=== PATIENT | female | born 1990 | race Two or more races ===

== ENCOUNTER 2019-07-11 00:37 | Inpatient (IN) | payer SELFPAY ==
[~2019-07-11] VITALS: Ht 162.6 cm; Wt 107.3 kg
[2019-07-11 01:17] LABS: Urine Bacteria FEW /hpf (None Seen); Urine Blood Negative /uL (Negative); Urine Mucus FEW (None Seen); Urine Specific Gravity 1.032 (1.001-1.035); Urine WBC 5 /hpf (0 - 5)
[2019-07-11 01:55] LABS: Basophils # (auto) 0.1 10 ^3/uL (0-0.2); Basophils % (auto) 0.6 % (0.0-2.0); Eosinophils # (auto) 0 10 ^3/uL (0-0.8); Eosinophils % (auto) 0.3 % (0.0-7.0); Hematocrit 43.1 % (36.0-46.0); Hemoglobin 14.5 g/dL (12.2-16.2); Lymphocytes # (auto) 1.5 10 ^3/uL (0.4-5.4); Lymphocytes % (auto) 15.9 % (10.0-50.0); Mean Corpuscular Hemoglobin 28.7 pg (28.0-32.0); Mean Corpuscular Hgb Conc. 33.5 g/dL (32.0-36.0); Mean Corpuscular Volume 85.7 fL (80.0-100.0); Monocytes # (auto) 0.4 10 ^3/uL (0-1.3); Monocytes % (auto) 3.9 % (0.0-12.0); Neutrophils # (auto) 7.4 10 ^3/uL (1.6-8.6); Neutrophils % (auto) 79.3 % (37.0-80.0); Nucleated Red Blood Cells % 0.1 %; Platelet Count (auto) 359 10^3/uL (140-450); Red Blood Cells 5.03 10^6/uL (4.0-5.20); Red Cell Distribution Width 12.7 % (11.8-14.3); White Blood Cell 9.4 10^3/uL (4.4-10.8)
[2019-07-11 02:14] LABS: Albumin 3.6 g/dL (3.4-5.0); BUN/Creatinine Ratio 16.1; Calcium 9.1 mg/dL (8.5-10.1); Potassium 3.9 mmol/L (3.5-5.1)
[2019-07-11 02:17] LABS: Bilirubin, Total 0.2 mg/dL (0.2-1.0); Total Protein 8.8 g/dL (6.4-8.2)
[2019-07-11] MEDS ORDERED: SODIUM CHLORIDE 0.9% 500 ML IVB ONE (06:34)
[2019-07-11] MEDS ORDERED: ONDANSETRON HCL 4 MG/2 ML VIAL IV ONE ×2 (06:45→09:00)
[2019-07-11] MEDS ORDERED: MORPHINE SULFATE 4 MG/ML SYR/VIAL IV ONE (06:45)
[2019-07-11] MEDS ORDERED: HYDROmorphone HCL 2 MG/ML VL IV ONE (09:00)
[2019-07-11] MEDS: SODIUM CHLORIDE 0.9% 1,000 ML IV SCH ×2 (11:15→12:24)
[2019-07-11] MEDS: MEPERIDINE HCL (25 MG/ML) 1ML VIAL IM PRN ×3 (12:20→22:12)
[2019-07-11] MEDS: ONDANSETRON HCL 4 MG/2 ML VIAL IV PRN ×2 (13:02→17:57)
--- NOTE | 2019-07-11 14:00 | NUR ---
Wound dressing changed to right hip. Signed: 07/12/19 at 1710 by CHIVO MIN RN Addendum: 07/12/19 at 1710 by CHIVO MIN RN wrong patient Signed: 07/12/19 at 1710 by CHIVO MIN RN
[2019-07-11] MEDS ORDERED: cefTRIAXone 1GM/50ML D5W 50 ML IV ONE (16:30)
[2019-07-11 18:57] VITALS: BP 122/70
--- NOTE | 2019-07-11 19:11 | NUR ---
MS admit from ER [facility] PEREZ admitted to tele/MS after SBAR received. Patient oriented to CHIVO MIN, primary RN, unit, room, bed, and unit policies regarding patient care and visiting hours. Patient weighed by bed scale and encouraged to call if they need something. All questions and concerns
--- NOTE | 2019-07-11 19:35 | NUR ---
RECEIVED PATIENT FROM DAY SHIFT RN. PATIENT RESTING IN BED WITH EYES CLOSED. FAMILY AT BEDSIDE. NO S/S OF DISTRESS AND PAIN NOTED. REINFORCED NPO AFTER MIDNIGHT FOR PROCEDURE TOMORROW. POC INSTRUCTED AND ENCOURAGED PATIENT TO CALL FOR [employer] PHOTO MASK TECHNICIAN IF NEEDED. BED IN LOWEST POSITION WITH SIDE RAILS UP X 2. CALL LEIGH WITHIN REACH. CONTINUE TO MONITOR FOR CHANGES Q1H AND PRN.
[2019-07-11 21:30] VITALS: BP 122/70
[2019-07-11] MEDS: PANTOPRAZOLE 40 MG TAB PO SCH (21:30)
[2019-07-11] MEDS ORDERED: FAMOTIDINE (10MG/ML) 2ML VL IV SCH (22:00)
--- NOTE | 2019-07-11 22:14 | NUR ---
MEDICATED PATIENT FOR PAIN @ 10/17 ORDERED. CONTINUE TO MONITOR. Addendum: 07/11/19 at 2252 by Mya Grider RN PAIN SCALE 11/16
[2019-07-12] VITALS (7 sets, daily range): BP systolic 97–112; BP diastolic 58–81
--- NOTE | 2019-07-12 00:11 | NUR ---
WATER REMOVED FROM BEDSIDE. PATIENT SLEEPING. NO S/S OF DISTRESS NOTED. CONTINUE TO MONITOR.
[2019-07-12] MEDS: SODIUM CHLORIDE 0.9% 1,000 ML IV SCH ×3 (01:52→23:49)
[2019-07-12] MEDS: MEPERIDINE HCL (25 MG/ML) 1ML VIAL IM PRN ×3 (02:41→11:07)
[2019-07-12 05:22] LABS: INR 1.14 (0.9-1.15); Partial Thromboplastin Time 29.2 sec (23.64-32.05)
--- NOTE | 2019-07-12 06:00 | NUR ---
PATIENT C/O PAIN CAME BACK @ 11/16. WILL COME BACK FOR PAIN MEDICATION LATER WHEN THE TIME IS DUE. REINFORCED NPO FOR NOW. PATIENT VERBALIZED UNDERSTANDING. CONTINUE TO MONITOR.
--- NOTE | 2019-07-12 06:38 | NUR ---
MEDICATED PATIENT FOR PAIN @ 11/16 ORDERED. CONTINUE TO MONITOR.
[2019-07-12] MEDS ORDERED: cefTRIAXone 1GM/50ML D5W 50 ML IV SCH (09:00)
[2019-07-12] MEDS: PANTOPRAZOLE 40 MG TAB PO SCH ×2 (09:33→22:16)
[2019-07-12] MEDS ORDERED: diphenhdrAMINE HCL 50 MG/1 ML VL ONE (10:22)
[2019-07-12] MEDS ORDERED: SODIUM CHLORIDE LOCK 10 ML ONE (10:22)
[2019-07-12] MEDS ORDERED: LIDOCAINE VISCOUS 2% 15ML UD ONE (10:22)
[2019-07-12] MEDS: ONDANSETRON HCL 4 MG/2 ML VIAL IV PRN ×2 (11:07→22:16)
[2019-07-12] MEDS: fentaNYL CITRATE 100 MCG/2 ML VL ONE ×2 (12:32→12:36)
[2019-07-12] MEDS: MIDAZOLAM HCL 5 MG/ML-1ML VIAL ONE ×2 (12:32→12:36)
--- NOTE | 2019-07-12 13:30 | NUR ---
Patient came back from OR, patient is drowsy and verbally responsive. Respiratory even and unlabored. Skin is warm and dry to touch. VS : T 98.5, HR 112, BP 97/58 o2 93 % on 2 L cannular. Will continue to monitor.
--- NOTE | 2019-07-12 13:36 | NUR ---
Dr. Rosario paged regarding pain meds, awaiting to call back.
--- NOTE | 2019-07-12 14:00 | NUR ---
Received a call from Dr. Rosario, noted and carried it out.
[2019-07-12] MEDS ORDERED: ACETAMINOPHEN 325 MG TAB PO PRN ×2 (14:30→14:45)
[2019-07-12] MEDS: PIPERACILLIN-TAZOB 3.375GM 100 ML IV SCH ×2 (17:47→23:48)
[2019-07-12] MEDS: MEPERIDINE HCL (25 MG/ML) 1ML VIAL IV PRN ×2 (18:59→23:49)
--- NOTE | 2019-07-12 19:10 | NUR ---
Opening Shift Note Assumed care of patient, Patient awake and alert and oriented X4. currently at the bedside. Patient complains of pain 7/10 in the right upper abdominal quadrant with nausea and vomiting. Will medicate for pain and nausea PRN. Bed is in lowest position, locked, 2 side rails raised, with call colón within reach. Instructed on POC and to call for assist PRN, will continue to monitor for changes Q1hr and PRN.
[2019-07-12] MEDS: ACETAMINOPHEN 500 MG TAB PO PRN (22:17)
[2019-07-13] MEDS: PIPERACILLIN-TAZOB 3.375GM 100 ML IV SCH ×3 (05:25→17:59)
[2019-07-13] MEDS: ONDANSETRON HCL 4 MG/2 ML VIAL IV PRN ×2 (05:26→19:52)
[2019-07-13] MEDS: SODIUM CHLORIDE 0.9% 1,000 ML IV SCH ×2 (05:26→14:30)
[2019-07-13] MEDS: MEPERIDINE HCL (25 MG/ML) 1ML VIAL IV PRN ×3 (05:27→18:25)
[2019-07-13 05:29] LABS: Basophils # (auto) 0 10 ^3/uL (0-0.2); Basophils % (auto) 0.3 % (0.0-2.0); Eosinophils # (auto) 0.1 10 ^3/uL (0-0.8); Eosinophils % (auto) 0.5 % (0.0-7.0); Hemoglobin 12.3 g/dL (12.2-16.2); Lymphocytes # (auto) 1.6 10 ^3/uL (0.4-5.4); Lymphocytes % (auto) 11.7 % (10.0-50.0); Mean Corpuscular Hemoglobin 29.5 pg (28.0-32.0); Mean Corpuscular Hgb Conc. 34.2 g/dL (32.0-36.0); Mean Corpuscular Volume 86.2 fL (80.0-100.0); Monocytes % (auto) 7.5 % (0.0-12.0); Neutrophils # (auto) 11.1 10 ^3/uL (1.6-8.6); Platelet Count (auto) 254 10^3/uL (140-450); Red Blood Cells 4.18 10^6/uL (4.0-5.20); Red Cell Distribution Width 12.6 % (11.8-14.3); White Blood Cell 13.8 10^3/uL (4.4-10.8)
[2019-07-13 05:35] LABS: INR 1.17 (0.9-1.15)
[2019-07-13 05:47] LABS: Albumin 2.6 g/dL (3.4-5.0); Calcium 8.4 mg/dL (8.5-10.1); Potassium 3.5 mmol/L (3.5-5.1)
[2019-07-13 05:51] LABS: BUN/Creatinine Ratio 9.8; Bilirubin, Total 1.3 mg/dL (0.2-1.0); Total Protein 7.2 g/dL (6.4-8.2)
[2019-07-13 05:53] VITALS: BP 108/70
--- NOTE | 2019-07-13 07:30 | NUR ---
Report received. Patient in OR for procedure.
[2019-07-13] MEDS ORDERED: MIDAZOLAM HCL 1MG/1ML-2 ML VIAL ONE (08:00)
[2019-07-13] MEDS ORDERED: MEPERIDINE HCL (50 MG/ML) 1 ML VIAL ONE (08:00)
[2019-07-13] MEDS ORDERED: fentaNYL CITRATE 100 MCG/2 ML VL ONE (08:00)
[2019-07-13] MEDS ORDERED: PROPOFOL 10 MG/ML 20 ML IV ONE (08:01)
[2019-07-13] MEDS ORDERED: DexAMETHasone SOD PHOS 10MG/1ML VIAL INJ ONE (08:01)
[2019-07-13] MEDS ORDERED: LIDOCAINE 1% HCL (LOCAL ANESTH.) INJ 20ML MDV ONE (08:28)
[2019-07-13] MEDS ORDERED: SUCCINYLCHOLINE CHLORIDE 20 MG/ML 10ML VIAL IV ONE (08:41)
[2019-07-13] MEDS ORDERED: ROCURONIUM 10MG/ML 10ML VIAL IV ONE (08:51)
[2019-07-13] MEDS ORDERED: METOCLOPRAMIDE HCL 5MG/ml INJ 2ml VIAL ONE (09:36)
[2019-07-13] MEDS ORDERED: NEOSTIGMINE 1 MG/ML INJ (10mg/10ML VIAL) ONE (09:36)
[2019-07-13] MEDS ORDERED: GLYCOPYRROLATE 0.2 MG/ML 1ML VIAL ONE (09:36)
[2019-07-13] MEDS: PANTOPRAZOLE 40 MG TAB PO SCH ×2 (10:00→21:29)
[2019-07-13] MEDS ORDERED: HYDROmorphone HCL 2 MG/ML VL IV PRN (10:30)
[2019-07-13] MEDS ORDERED: MIDAZOLAM HCL 1MG/1ML-2 ML VIAL IV PRN (10:30)
[2019-07-13] MEDS ORDERED: ONDANSETRON HCL 4 MG/2 ML VIAL IV PRN (10:30)
[2019-07-13] MEDS ORDERED: MORPHINE SULFATE 4 MG/ML SYR/VIAL IV PRN (10:30)
[2019-07-13] MEDS ORDERED: ePHEDrine SULFATE 50 MG/ML AMP IV PRN (10:30)
[2019-07-13] MEDS ORDERED: LABETALOL HCL 5 MG/ML 4ML SYRINGE IV PRN (10:30)
--- NOTE | 2019-07-13 11:20 | NUR ---
Patient returned to room. Patient is sleepy but alert when aroused. Four small dressing noted. NILE noted RLQ. Abdominal binder in place. No S/S distress. Call light in reach. Will continue to monitor.
[2019-07-13 12:00] VITALS: BP 103/68
--- NOTE | 2019-07-13 12:48 | NUR ---
Patient's at bedside. Patient is resting quietly, no S/S distress. Call light in reach. Will continue to monitor.
[2019-07-13] MEDS: ACETAMINOPHEN 500 MG TAB PO PRN (16:43)
--- NOTE | 2019-07-13 16:44 | NUR ---
Patient C/O headache. Tylenol PO given. Will continue to monitor.
[2019-07-13 17:00] VITALS: BP 121/73
--- NOTE | 2019-07-13 19:35 | NUR ---
Opening Shift Note Assumed care of patient, patient is lethargic but arousable, alert and oriented X 4. Patient complains of abdominal pain 6/10 and nausea, will medicate for pain and nausea PRN. Abdomen is soft and non-tender. Incisions are clean, dry, and intact. Emptied 20 ml serosanguineous fluid from NILE drain. Bed is in lowest position, locked, two side rails raised, with call colón within reach. Instructed on POC and to call for assist PRN, will continue to monitor for changes Q1hr and PRN.
[2019-07-13 20:00] VITALS: BP 137/92
[2019-07-13 22:31] VITALS: BP 137/92
[2019-07-14] MEDS: PIPERACILLIN-TAZOB 3.375GM 100 ML IV SCH ×4 (00:07→18:20)
[2019-07-14] MEDS: ONDANSETRON HCL 4 MG/2 ML VIAL IV PRN ×5 (00:08→18:28)
[2019-07-14] MEDS: MEPERIDINE HCL (25 MG/ML) 1ML VIAL IV PRN ×4 (00:09→14:27)
[2019-07-14 05:29] VITALS: BP 102/70
[2019-07-14] MEDS: SODIUM CHLORIDE 0.9% 1,000 ML IV SCH ×3 (05:43→22:30)
--- NOTE | 2019-07-14 06:51 | NUR ---
NILE Drainage: 40 mls of sanguinous drainage.
[2019-07-14 09:00] VITALS: BP 106/59
[2019-07-14] MEDS: PANTOPRAZOLE 40 MG TAB PO SCH ×2 (09:44→21:25)
[2019-07-14 13:00] VITALS: BP 101/66
--- NOTE | 2019-07-14 13:20 | NUR ---
Hospitalist rounding Dr. Rosario at bedside. Verbal order to add [place] 5/325 for pain Q6HP. Entered in eMAR.
--- NOTE | 2019-07-14 15:11 | NUR ---
NUTRITION ASSESSMENT NOTES Please refer to link notes of nutrition screen form filed under the intervention section of the plan of care for further details. Est. Needs based on AdBW (68 kg): 1350 kcal to 1700 kcal (20-25 kcal/kgAdBW), 68 gms to 82 gms pro (1.0-1.2 gms/kgBW). Will continue to monitor pertinent labs and reassess nutrient needs prn Thank you. Addendum: 07/14/19 at [address] Amended: Links added.
[2019-07-14 17:00] VITALS: BP 98/62
[2019-07-14] MEDS: HYDROcodone-ACET 5/325MG TAB PO PRN (18:20)
--- NOTE | 2019-07-14 19:35 | NUR ---
Opening Shift Note Assumed care of patient, awake, alert, and oriented X 4. Patient states that she is feeling much better than the previous days and says she has pain 4/10, will medicate for pain PRN. Patient is sitting on the side of the bed. Bed is low, locked, with one side rail raised and call colón is within reach. Instructed on POC and to call for assist PRN, will continue to monitor for changes Q1hr and PRN.
[2019-07-14 20:00] VITALS: BP 111/78
[2019-07-14 22:00] VITALS: BP 111/78
--- NOTE | 2019-07-14 23:00 | NUR ---
PATIENT ACCIDENTALLY REMOVED IV FROM RIGHT FOREARM, PRESSURE DRESSING APPLIED AND CATHETER TIP INTACT, AFTER 2 ATTEMPTS BY SHON RN AND TRENTON RN, IV WAS INSERTED BY LUZ RN, 24 GAUGE LEFT FOREARM, PATIENT TOLERATED WELL.
[2019-07-15] MEDS: HYDROcodone-ACET 5/325MG TAB PO PRN
[2019-07-15] MEDS: ONDANSETRON HCL 4 MG/2 ML VIAL IV PRN ×3 (00:01→15:10)
--- NOTE | 2019-07-15 04:00 | NUR ---
Paged hospitalist MD Pickett regarding blood pressure of 84/55, assessed patient, no new drainage from NILE drain or abdominal incisions. Will continue to monitor.
[2019-07-15 05:00] VITALS: BP 86/49
--- NOTE | 2019-07-15 05:10 | NUR ---
Spoke with hospitalist MD Pickett regarding blood pressures of 86/50 and 84/55, received order for a 1 Liter bolus of normal saline and a routine CBC to be drawn this morning. Patient is awake and alert and oriented X 4 but is complaining of "feeling weird", patient could not elaborate. Will continue to monitor.
[2019-07-15] MEDS ORDERED: SODIUM CHLORIDE 0.9% 1,000 ML IV ONE (05:15)
[2019-07-15] MEDS: ACETAMINOPHEN 500 MG TAB PO PRN (05:47)
[2019-07-15 06:15] LABS: Basophils # (auto) 0.1 10 ^3/uL (0-0.2); Basophils % (auto) 1.4 % (0.0-2.0); Eosinophils # (auto) 0.2 10 ^3/uL (0-0.8); Eosinophils % (auto) 2.4 % (0.0-7.0); Hematocrit 32.4 % (36.0-46.0); Hemoglobin 11.2 g/dL (12.2-16.2); Lymphocytes # (auto) 2.4 10 ^3/uL (0.4-5.4); Lymphocytes % (auto) 31.4 % (10.0-50.0); Mean Corpuscular Hemoglobin 30.1 pg (28.0-32.0); Mean Corpuscular Hgb Conc. 34.4 g/dL (32.0-36.0); Mean Corpuscular Volume 87.5 fL (80.0-100.0); Monocytes # (auto) 0.5 10 ^3/uL (0-1.3); Monocytes % (auto) 6.7 % (0.0-12.0); Neutrophils # (auto) 4.5 10 ^3/uL (1.6-8.6); Neutrophils % (auto) 58.1 % (37.0-80.0); Nucleated Red Blood Cells % 0.2 %; Platelet Count (auto) 299 10^3/uL (140-450); Red Blood Cells 3.71 10^6/uL (4.0-5.20); Red Cell Distribution Width 12.7 % (11.8-14.3); White Blood Cell 7.8 10^3/uL (4.4-10.8)
[2019-07-15] MEDS: PIPERACILLIN-TAZOB 3.375GM 100 ML IV SCH ×4 (06:50→18:52)
[2019-07-15] MEDS: SODIUM CHLORIDE 0.9% 1,000 ML IV SCH (06:50)
--- NOTE | 2019-07-15 07:20 | NUR ---
Opening Shift Note Assumed care of patient, awake and alert. No S/S of distress/SOB or pain. Updated patient on POC and instructed to call for assistance PRN. Bed is set in lowest locked position with side rails up x 2 for safety and call light is within reach, will continue to monitor for changes Q1hr and PRN.
[2019-07-15 08:00] VITALS: BP 97/62
[2019-07-15 09:00] VITALS: BP 97/62
[2019-07-15] MEDS: PANTOPRAZOLE 40 MG TAB PO SCH ×2 (09:40→22:09)
[2019-07-15 12:30] LABS: Albumin 2.7 g/dL (3.4-5.0); Calcium 8.7 mg/dL (8.5-10.1)
[2019-07-15 12:34] LABS: BUN/Creatinine Ratio 8.6; Bilirubin, Total 0.5 mg/dL (0.2-1.0); Total Protein 7.4 g/dL (6.4-8.2)
--- NOTE | 2019-07-15 12:38 | NUR ---
Spoke to MD Dr. Marlene MD aware of patient's K level, 3.0. No new orders received at this time.
[2019-07-15 13:00] VITALS: BP 100/69
[2019-07-15] MEDS ORDERED: POTASSIUM CHLORIDE 60 MEQ, LIDOCAINE 1% (LOCAL ANESTH.) 6 ML in SODIUM CHL 0.9% 500 ML IV ONE (14:00)
[2019-07-15] MEDS ORDERED: oxyCODONE ER 10 MG TAB PO SCH ×2 (14:16→15:00)
[2019-07-15] MEDS ORDERED: oxyCODONE HCL 5MG TAB PO PRN ×2 (15:15→19:30)
--- NOTE | 2019-07-15 15:45 | NUR ---
Medication on hold Due to IV site infiltration, IV removed with catheter intact and pressure dressing applied to site. Will continue to monitor. paged Dr. Rosario, awaiting call back.
--- NOTE | 2019-07-15 15:46 | NUR ---
Spoke to MD New orders received and read back for verification.
[2019-07-15 17:00] VITALS: BP 104/68
--- NOTE | 2019-07-15 18:00 | NUR ---
PICC line RN at bedside
[2019-07-15] MEDS: traMADol HCL 50 MG TAB PO PRN (18:52)
--- NOTE | 2019-07-15 18:53 | NUR ---
MIDLINE placement Patient/Patient significant other educated on need for MIDLINE placement. All risks and benefits explained and all questions and concerns addressed prior to procedure. Noted past medical history and allergies with no contraindications. INR and Plt counts within acceptable range. 4 fr MIDLINE inserted via right basilic vein using [employer]'s [employer] US and Tip Location System. Sterile technique with maximum barrier precautions utilized. Blood return obtained from the single lumen and it flushed easily with NS using proper technique. MIDLINE secured with Stat-lock; biodisc and occlusive dressing applied. Less than 5ml EBL noted during procedure. MIDLINE 20cm internally w/ 0cm externally. *Baseline Arm Circumference 36cm at 1cm above insertion site. MIDLINE lot # [id number]. Note:
--- NOTE | 2019-07-15 18:54 | NUR ---
OK to use MIDLINE Gris Myers notified now OK to use MIDLINE.
[2019-07-15 22:00] VITALS: BP 110/68
[2019-07-16] VITALS (7 sets, daily range): BP systolic 96–128; BP diastolic 60–70
[2019-07-16] MEDS: PIPERACILLIN-TAZOB 3.375GM 100 ML IV SCH ×5 (01:10→23:49)
[2019-07-16] MEDS: ONDANSETRON HCL 4 MG/2 ML VIAL IV PRN (06:23)
[2019-07-16] MEDS: traMADol HCL 50 MG TAB PO PRN (06:23)
--- NOTE | 2019-07-16 07:30 | NUR ---
Opening Shift Note Assumed care of patient, awake and alert. No S/S of distress/SOB or pain. Bed in lowest and locked position with side rails x2 and call light within reach. Instructed on POC and to call for assist PRN, will continue to monitor for changes Q1hr and PRN.
[2019-07-16 07:33] LABS: Basophils # (auto) 0.1 10 ^3/uL (0-0.2); Eosinophils # (auto) 0.2 10 ^3/uL (0-0.8); Eosinophils % (auto) 4.3 % (0.0-7.0); Hematocrit 35.3 % (36.0-46.0); Hemoglobin 11.8 g/dL (12.2-16.2); Lymphocytes # (auto) 1.9 10 ^3/uL (0.4-5.4); Lymphocytes % (auto) 36.8 % (10.0-50.0); Mean Corpuscular Hgb Conc. 33.4 g/dL (32.0-36.0); Mean Corpuscular Volume 86.8 fL (80.0-100.0); Monocytes # (auto) 0.4 10 ^3/uL (0-1.3); Monocytes % (auto) 8.2 % (0.0-12.0); Neutrophils # (auto) 2.5 10 ^3/uL (1.6-8.6); Neutrophils % (auto) 49.7 % (37.0-80.0); Platelet Count (auto) 314 10^3/uL (140-450); Red Blood Cells 4.07 10^6/uL (4.0-5.20); Red Cell Distribution Width 12.6 % (11.8-14.3); White Blood Cell 5.1 10^3/uL (4.4-10.8)
[2019-07-16 07:53] LABS: Albumin 2.5 g/dL (3.4-5.0); Calcium 8.5 mg/dL (8.5-10.1); Potassium 3.7 mmol/L (3.5-5.1)
[2019-07-16 07:56] LABS: Bilirubin, Total 0.4 mg/dL (0.2-1.0)
[2019-07-16 08:21] LABS: BUN/Creatinine Ratio 4.8
[2019-07-16] MEDS: PANTOPRAZOLE 40 MG TAB PO SCH ×2 (11:35→22:24)
--- NOTE | 2019-07-16 19:00 | NUR ---
NILE DRAIN REMOVED 50ML FROM NILE DRAIN.
--- NOTE | 2019-07-16 19:20 | NUR ---
Opening Shift Note Assumed care of patient, awake and alert. No S/S of distress/SOB or pain. Instructed on POC and to call for assist PRN, will continue to monitor for changes Q1hr and PRN. PATIENT RESTING IN BED, BED IN LOWEST POSITION, SIDE RALES UP X2, CALL LIGHT AT HER SIDE WITHIN REACH.
[2019-07-16] MEDS: MEPERIDINE HCL (25 MG/ML) 1ML VIAL IV PRN (21:22)
[2019-07-17 05:22] VITALS: BP 105/67
[2019-07-17] MEDS: PIPERACILLIN-TAZOB 3.375GM 100 ML IV SCH ×2 (05:53→12:49)
[2019-07-17 09:00] VITALS: BP 101/57
[2019-07-17] MEDS: PANTOPRAZOLE 40 MG TAB PO SCH (09:49)
[2019-07-17] MEDS: ONDANSETRON HCL 4 MG/2 ML VIAL IV PRN (09:49)
[2019-07-17] MEDS: traMADol HCL 50 MG TAB PO PRN (09:54)
[2019-07-17 12:30] VITALS: BP 135/78
--- NOTE | 2019-07-17 14:20 | NUR ---
Discharge Pending patient tolerating soft diet for supper. Full liquid diet at lunch.
[2019-07-17] MEDS ORDERED: AMOXICILLIN/CLAVUL 875 MG TAB PO ONE (16:00)
[2019-07-17 17:10] VITALS: BP 115/67
--- NOTE | 2019-07-17 18:00 | NUR ---
NILE Drain Patient is discharged with NILE drain. Patient was previously instructed on how to empty drain and to call surgeon to make follow up appointment when drain is 5cc or less daily.
[2019-07-17 18:06] VITALS: BP 115/67
--- NOTE | 2019-07-17 19:21 | NUR ---
Discharge instructions given as ordered. Encourage to follow up with PMD as instructed. All questions and concerns addressed. Patient verbalized understanding. Medication reconciliation form completed and copy given to patient. Midline removed with catheter intact and pressure dressing applied. Telemetry unit returned to ICU. Patient taken to vehicle via wheelchair with all personal belongings, accompanied by staff and family member. No distress noted at time of departure.
== END 2019-07-17 19:21 | disposition home or self-care (01) | DRG 417 ==
LOC: EDBD 00:37 → ER 00:53 → OVERFLOW 00:54 → WEST WING 18:22 → TELE-WESTW 07-15 15:05
PROVIDERS: ADMIT Nurse Practitioner Acute Care; ATTEND Internal Medicine
PROC: 0DJ08ZZ Inspection of Upper Intestinal Tract, Via Natural or Artificial Opening Endoscopic (ICD-10-PCS; principal; 2019-07-12 12:31)
PROC: 0FT44ZZ Resection of Gallbladder, Percutaneous Endoscopic Approach (ICD-10-PCS; 2019-07-13)
DX: K81.0 Acute cholecystitis (principal); K65.1 Peritoneal abscess; Z68.41 Body mass index [BMI] 40.0-44.9, adult; E66.9 Obesity, unspecified; E87.6 Hypokalemia; K59.00 Constipation, unspecified; K66.0 Peritoneal adhesions (postprocedural) (postinfection)
CPT/HCPCS: 36415; 43235; 74176; 76705; 78226; 80053; 81001; 81025; 82150; 83605; 83690; 85025; 85610; 85730; 86850; 86900; 86901; 87804; 96361; 96365; 96375; 96376; G0378; J0330; J0696; J1100; J2001; J2250; J2405; J2543; J2704